=== PATIENT | female | born 1965 | race African-American/Black ===

== ENCOUNTER 2017-11-11 07:51 | Emergency (ER) | payer SELFPAY ==
[~2017-11-11] VITALS: Ht 165.1 cm; Wt 74.0 kg
[2017-11-11 12:15] VITALS: BP 121/86
== END 2017-11-11 12:26 | disposition home or self-care (01) ==
LOC: ER 08:03
DX: R53.1 Weakness (principal); Z59.0 Homelessness
CPT/HCPCS: 99283

== ENCOUNTER 2018-02-03 23:44 | Emergency (ER) | payer SELFPAY ==
[~2018-02-03] VITALS: Ht 162.6 cm; Wt 68.0 kg
[2018-02-04 00:39] VITALS: BP 108/71
[2018-02-04] MEDS ORDERED: OLANZAPINE 5MG TABLET ODT PO ONE (00:45)
== END 2018-02-04 01:08 | disposition home or self-care (01) ==
LOC: ER 23:55
DX: F31.9 Bipolar disorder, unspecified (principal); R44.0 Auditory hallucinations
CPT/HCPCS: 81025; 99284; X7700

== ENCOUNTER 2018-02-04 02:39 | Emergency (ER) | payer SELFPAY ==
[~2018-02-04] VITALS: Ht 167.6 cm; Wt 68.0 kg
[2018-02-04] MEDS ORDERED: ONDANSETRON 4MG ODT PO ONE (07:00)
[2018-02-04] MEDS ORDERED: ACETAMINOPHEN 325MG TABLET PO ONE (07:00)
[2018-02-04] MEDS ORDERED: MECLIZINE 25MG TABLET PO ONE (07:00)
[2018-02-04 07:14] LABS: BASOPHILS % 0.6 % (0.0-2.0); LYMPHOCYTES % 49.7 % (20.0-50.0); MEAN CORPUSCULAR HEMOGLOBIN 28.8 pg (28.0-32.0); MEAN CORPUSCULAR VOLUME 80.4 fL (81.0-99.0); MEAN PLATELET VOLUME 8.2 fl (7.4-10.4); MONOCYTES % 7.2 % (2.0-8.0); NEUTROPHILS % 39.5 % (40.0-76.0); PLATELET 271 x1000/uL (130-400); RED BLOOD CELL COUNT 4.85 mill/uL (4.2-5.4); RED CELL DISTRIBUTION WIDTH 13.6 % (11.6-14.6)
[2018-02-04 07:16] LABS: CHLORIDE 105 mEq/L (98-107)
[2018-02-04 07:29] LABS: CLARITY URINE CLEAR (CLEAR); COLOR URINE YELLOW (YELLOW); KETONES URINE NEGATIVE (NEGATIVE); LEUKOCYTE ESTERASE URINE NEGATIVE (NEGATIVE); NITRITE URINE NEGATIVE (NEGATIVE); OCCULT BLOOD URINE NEGATIVE (NEGATIVE); PH URINE 6.5 (4.5-8.0); PROTEIN URINE NEGATIVE (NEGATIVE); SPECIFIC GRAVITY URINE 1.019 (1.005-1.030); UROBILINOGEN URINE 0.2 E.U./dL (0.2-1.0)
[2018-02-04 09:10] VITALS: BP 119/74
== END 2018-02-04 09:12 | disposition home or self-care (01) ==
LOC: ER 02:51
DX: R42 Dizziness and giddiness (principal); F31.9 Bipolar disorder, unspecified; F17.200 Nicotine dependence, unspecified, uncomplicated; Z88.8 Allergy status to other drugs, medicaments and biological substances
CPT/HCPCS: 36415; 80048; 81003; 81025; 85025; 93005; 99285; Q0162; J8597

== ENCOUNTER 2018-02-20 22:09 | Emergency (ER) | payer SELFPAY ==
[~2018-02-20] VITALS: Ht 160 cm; Wt 70.0 kg
[2018-02-20 23:59] LABS: BASOPHILS % 0.8 % (0.0-2.0); EOSINOPHILS % 1.7 % (0.0-5.0); HEMOGLOBIN. 13.4 g/dL (12.0-16.0); LYMPHOCYTES % 42.3 % (20.0-50.0); MEAN CORPUSCULAR HEMOGLOBIN 28.2 pg (28.0-32.0); MEAN PLATELET VOLUME 8.5 fl (7.4-10.4); MONOCYTES % 7.9 % (2.0-8.0); NEUTROPHILS % 47.3 % (40.0-76.0); PLATELET 267 x1000/uL (130-400); RED BLOOD CELL COUNT 4.75 mill/uL (4.2-5.4); RED CELL DISTRIBUTION WIDTH 13.5 % (11.6-14.6)
[2018-02-21 00:06] LABS: CHLORIDE 105 mEq/L (98-107)
[2018-02-21 00:07] LABS: PROTHROMBIN TIME 10.6 sec (9.4-11.6)
[2018-02-21 01:19] LABS: CLARITY URINE CLEAR (CLEAR); COLOR URINE YELLOW (YELLOW); KETONES URINE NEGATIVE (NEGATIVE); LEUKOCYTE ESTERASE URINE NEGATIVE (NEGATIVE); NITRITE URINE NEGATIVE (NEGATIVE); OCCULT BLOOD URINE NEGATIVE (NEGATIVE); PH URINE 6.5 (4.5-8.0); PROTEIN URINE NEGATIVE (NEGATIVE); UROBILINOGEN URINE 0.2 E.U./dL (0.2-1.0)
[2018-02-21] MEDS ORDERED: IOHEXOL-300 100 ML BOTTLE ONE (02:21)
[2018-02-21 05:00] VITALS: BP 98/63
== END 2018-02-21 05:55 | disposition home or self-care (01) ==
LOC: ER 02-21 00:24
DX: R10.9 Unspecified abdominal pain (principal); F31.9 Bipolar disorder, unspecified; F20.9 Schizophrenia, unspecified; F17.200 Nicotine dependence, unspecified, uncomplicated; Z88.8 Allergy status to other drugs, medicaments and biological substances
CPT/HCPCS: 36415; 74177; 80053; 81003; 81025; 83690; 85025; 85610; 99285; Q9967; Z7610

== ENCOUNTER 2018-02-21 06:14 | Emergency (ER) | payer SELFPAY ==
[~2018-02-21] VITALS: Ht 160 cm; Wt 70.0 kg
[2018-02-21 06:32] VITALS: BP 116/54
== END 2018-02-21 06:55 | disposition left against medical advice (07) ==
LOC: ER 06:14
DX: Z53.21 Procedure and treatment not carried out due to patient leaving prior to being seen by health care provider (principal); F31.9 Bipolar disorder, unspecified; F17.200 Nicotine dependence, unspecified, uncomplicated; Z88.8 Allergy status to other drugs, medicaments and biological substances